=== PATIENT | male | born 1980 | race Hispanic/Latino ===

== ENCOUNTER → 2020-10-30 | Outpatient (CLI) | payer MEDICARE | END | disposition home or self-care (01) | LOC: OIH 10:58 | PROVIDERS: ATTEND Internal Medicine | DX: M47.26 Other spondylosis with radiculopathy, lumbar region (principal); M48.07 Spinal stenosis, lumbosacral region; M40.46 Postural lordosis, lumbar region; M25.78 Osteophyte, vertebrae; J44.9 Chronic obstructive pulmonary disease, unspecified | CPT/HCPCS: 71046; 72100 ==

== ENCOUNTER → 2023-05-18 | Outpatient (CLI) | payer MEDICARE | END | disposition home or self-care (01) | LOC: OIH 10:41 | PROVIDERS: ATTEND Internal Medicine | DX: M19.012 Primary osteoarthritis, left shoulder (principal); M75.42 Impingement syndrome of left shoulder | CPT/HCPCS: 73030 ==

== ENCOUNTER 2023-12-18 06:19 | Emergency (ER) | payer MEDICARE ==
[~2023-12-18] VITALS: Ht 175.3 cm; Wt 114.8 kg
[2023-12-18 06:45] VITALS: BP 139/87; PULSE 81; RESP 18; O2SAT 98
== END 2023-12-18 07:06 | disposition home or self-care (01) ==
LOC: EDH 06:19
DX: T16.2XXA Foreign body in left ear, initial encounter (principal); F25.9 Schizoaffective disorder, unspecified; W44.F4XA Insect entering into or through a natural orifice, initial encounter; Y93.89 Activity, other specified; Y92.89 Other specified places as the place of occurrence of the external cause; Y99.8 Other external cause status
CPT/HCPCS: 30300; 69200

== ENCOUNTER 2024-04-07 17:33 | Emergency (ER) | payer MEDICARE ==
[~2024-04-07] VITALS: Ht 175.3 cm; Wt 114.8 kg
[2024-04-07] MEDS: CLINDAMYCIN 150 MG CAP PO ONE (17:47)
[2024-04-07] MEDS: ketOROlac 60 MG VIAL (30MG/ML) IM ONE (17:47)
[2024-04-07 17:59] LABS: BASOPHILS # (AUTO) 0.13 K/uL (0.00-0.20); BASOPHILS % (AUTO) 0.9 % (0.0-5.0); EOSINOPHILS # (AUTO) 0.41 K/uL (0.00-0.70); EOSINOPHILS % (AUTO) 2.7 % (0.0-8.0); HEMATOCRIT 40.3 % (42-54); IMMATURE GRANULOCYTE ABSOLUTE 0.07 K/uL (0-1); LYMPHOCYTES % (AUTO) 13.2 % (21.0-51.0); MEAN CORPUSCULAR HEMOGLOBIN 29.5 pg (27.0-33.0); MEAN CORPUSCULAR HGB CONC 34.5 g/dL (32.0-36.0); MEAN CORPUSCULAR VOLUME 85.6 fL (79-99); MONOCYTES % (AUTO) 6.9 % (3.0-13.0); NEUTROPHILS # (AUTO) 11.4 K/uL (1.8-7.7); NEUTROPHILS % (AUTO) 75.8 % (40.0-77.0); PLATELET COUNT (AUTO) 394 K/uL (130-400); RED BLOOD CELL COUNT(AUTO) 4.71 MIL/uL (4.50-6.20); RED CELL DISTRIBUTION WIDTH 13.2 % (11.0-15.5)
[2024-04-07 18:10] LABS: CREATININE 0.8 mg/dL (0.5-1.3); POTASSIUM 3.9 mmol/L (3.5-5.1)
[2024-04-07] MEDS ORDERED: IBUP-2077 PO (18:29)
[2024-04-07] MEDS ORDERED: CLIN-141 PO (18:29)
[2024-04-07 18:35] VITALS: BP 148/76; PULSE 78; RESP 16; TEMP 97.5; O2SAT 97
== END 2024-04-07 18:42 | disposition home or self-care (01) ==
LOC: EDH 17:33
DX: K02.9 Dental caries, unspecified (principal); F25.9 Schizoaffective disorder, unspecified
CPT/HCPCS: 99283; 80048; 85025; 87040 ×2; 83605; 36415; 96372; J1885

== ENCOUNTER → 2024-05-17 | Outpatient (CLI) | payer OTHER ==
[~2024-05-17] MED LIST: CLIN-141 PO; IBUP-2077 PO
--- NOTE | 2024-05-17 08:56 | HMCIMG ---
CT HEART SAVER PROMOTIONAL HISTORY: Calcium scoring COMPARISON: None TECHNIQUE: Computed tomography of the heart was performed with ECG gating and suspended respiration. Postprocessing was performed on a computer workstation to obtain diastolic phase images, determine calcium score and provide a quantitative assessment of extent of disease. This CT included only the heart. HeartSaver score is 428.0. Please see cardiac calcium score report. The available CT chest images show no acute finding. CT was performed with one or more following dose reduction techniques: automated exposure control, adjustment of the mA and kv according to patient's size, or use of a iterative reconstruction technique.
== END | disposition home or self-care (01) ==
LOC: RAH 07:37
PROVIDERS: ATTEND Internal Medicine
DX: Z13.6 Encounter for screening for cardiovascular disorders (principal)
CPT/HCPCS: 75571

== ENCOUNTER → 2024-07-08 | Outpatient (CLI) | payer MEDICARE, OTHER ==
[~2024-07-08] MED LIST changes: +REGADENOSON 0.4 MG/5 ML PF SYG IVP ONE
--- NOTE | 2024-07-09 08:46 | HMCSR ---
APPROVED REPORT TEST INDICATIONS CAD, VSD The imaging protocol used to acquire images was Rest Tc-99m/stress Tc-99m 1 day Consent: The procedure was explained and understood by the patient. Informerd consent was witnessed Marilyn Hensley [facility] First, low dose rest was performed then high dose stress. RESTING DATA: The resting ekg shows: NSR Rest SPECT myocardial perfusion imaging was performed in supine position minutes following the intra venous injection of 10 mCi of Tc-99 Sestamibi. Time of rest injection: 09 Date: 07/08/2024 PHARMACOLOGIC STRESS: Pharmacologic stress test was performed by injecting regadenoson 0.4 mg IV push followed by the intra venous injection of 28 mCi of Tc-99 Sestamibi. Time of stress injection: 1110 Date: 07/08/2024 Heart Rate at time of stress injection: 87 bpm. The images were gated to evaluate regional wall motion and calculate left ventricular ejection fracti on. STRESS DETAILS Reason for Termination: Infusion complete Stress Symptoms: Dyspnea, Chest Pressure Max HR Achieved: 110 bpm % of APMHR Achieved: 73 Max Blood Pressure: 160/94 mmHg Stress ECG: NSR Arrhythmia: No. ST Change: No. Study quality was excellent. Lung uptake was Normal. LEFT VENTRICLE Size: The left ventricular size is normal. Systolic Function:The left ventricular systolic function is normal. Wall Motion: No regional wall motion abnormalities noted. The left ventricular ejection fraction was calculated to be 67%.TID = 0.88. LV PERFUSION The rest and stress images show normal perfusion. RV Size/Shape Not visualized. IMPRESSION Normal pharmacologic nuclear stress test. Diseased Vessels: Normal Global LV Function: Normal Stress ECG Summary: Normal LV Perfusion Summary: Normal LV Viability Summary: Normal Conclusion The stress and resting images show normal perfusion. Normal LV systolic function and wall motion Negative pharmacologic cardiac stress test for ischemia or infarction.
== END | disposition home or self-care (01) ==
LOC: RAH 07:52
PROVIDERS: ATTEND Internal Medicine
DX: I25.10 Atherosclerotic heart disease of native coronary artery without angina pectoris (principal); Q21.0 Ventricular septal defect; R06.00 Dyspnea, unspecified; R07.89 Other chest pain
CPT/HCPCS: 78452; 93017; J2785; A9500 ×2

== ENCOUNTER → 2024-11-02 | Outpatient (CLI) | payer OTHER ==
[~2024-11-02] MED LIST changes: -REGADENOSON 0.4 MG/5 ML PF SYG IVP ONE
--- NOTE | 2024-11-02 12:06 | HMCIMG ---
CT ABDOMEN/PELVIS W/O CONTRAST HISTORY: Abdominal mass COMPARISON: None TECHNIQUE: Multiple sequential axial images of the abdomen and pelvis were obtained from the dome of the diaphragm through symphysis pubis. Patient was not given contrast through intravenous route. Oral contrast was not given. FINDINGS: No pleural effusion is seen bilaterally. There is no evidence of parenchymal disease or pulmonary nodule of the visualized lower lungs. Degenerative changes of the thoracolumbar spine are present. The heart is not enlarged. There is left upper abdominal wall soft tissue mass, measuring 2 cm x 1 cm. The liver, spleen, adrenal glands and pancreas are unremarkable. There is no evidence of hydronephrosis bilaterally. There is 2 mm left renal pelvic stone. Fecal material is seen in the colon. There are normal size retroperitoneal and mesenteric lymph nodes. No ascites is seen. No CT evidence of acute appendicitis is seen. Pelvic sidewalls are symmetric bilaterally. Bladder is well distended without wall thickening. IMPRESSION: 1. Fecal material is seen in the colon. No ascites is seen. There is left upper abdominal wall soft tissue mass, measuring 2 cm x [address] was performed with one or more following dose reduction techniques: automated exposure control, adjustment of the mA and kv according to patient's size, or use of a iterative reconstruction technique.
== END | disposition home or self-care (01) ==
LOC: RAH 10:35
PROVIDERS: ATTEND Internal Medicine
DX: N20.0 Calculus of kidney (principal); K56.41 Fecal impaction; M47.815 Spondylosis without myelopathy or radiculopathy, thoracolumbar region; R19.00 Intra-abdominal and pelvic swelling, mass and lump, unspecified site
CPT/HCPCS: 74176